=== PATIENT | female | born 1955 | race Caucasian/White ===

== ENCOUNTER 2021-03-28 09:28 | Day surgery (SDC) | payer OTHER ==
--- NOTE | 2021-03-28 08:55 | HP ---
DATE OF SURGERY: 03/28/2021 HISTORY OF PRESENT ILLNESS: The patient is a 65 year-old who had some sort of pelvic cyst, seen by Dr. Jacobo. Intervention radiology drained in the past, re-accumulated. It started after lifting the patient one person increased abdominal discomfort, some urinary urgency. The patient was to see Dr. Guardado or Dr. Butler in the office regarding the bladder. She is in need of colonoscopy as well. PAST MEDICAL HISTORY: Diabetes. Hypertension. Hyperlipidemia. Seasonal allergies. PAST SURGICAL HISTORY: Cholecystectomy. Appendectomy. Tonsillectomy. Complete hysterectomy in the past. MEDICATIONS: Glimepiride, lisinopril, atorvastatin, estradiol. ALLERGIES: NKDA. FAMILY HISTORY: Leukemia. SOCIAL HISTORY: No smoking or alcohol abuse. REVIEW OF SYSTEMS: Fourteen systems reviewed. No chest pain or palpitations. Other systems negative or noncontributory as above and per preadmission questionnaire. PHYSICAL EXAMINATION: GENERAL: No acute distress. HEENT: Sclerae nonicteric. NECK: No JVD. CHEST: Equal excursion, nonlabored breathing. CVS: Regular rate and rhythm. ABDOMEN: Soft. No peritoneal signs. EXTREMITIES: No significant edema. NEURO: Alert, oriented, moving extremities symmetrically. RECTAL: Deferred timed to endoscopy exam. PSYCH: Appropriate mood and affect. IMPRESSION: History of pelvic cyst, history of total hysterectomy in the past. She is in need of colonoscopy for further evaluation. Risks and benefits explained in detail including but not limited to bleeding or infection, risk of bowel injury or perforation possibly requiring open procedure, risk of missed or nondiagnosis or incomplete exam possibly requiring barium enema, other studies or procedures, general risk of anesthesia or sedation, risk of perforation possibly requiring open procedure but not limited to, consent obtained. Will proceed with outpatient colonoscopy for further evaluation to rule out other etiology of pelvic area mass.
[2021-03-28] MEDS ORDERED: Dextrose 5%-1/4NS IV Soln. 1000 ML 1,000 ML IV SCH (10:00)
[2021-03-28] MEDS ORDERED: Lactated Ringers 1,000 ML IV SCH (10:00)
[2021-03-28] MEDS ORDERED: DIPRIVAN 200 MG/20 ML IV ONE (11:47)
[2021-03-28 13:00] VITALS: O2SAT 98
[2021-03-28 13:09] VITALS: BP 140/77; PULSE 74
--- NOTE | 2021-03-29 09:42 | OP ---
SURGERY DATE/TIME: 03/28/2021 1136 PREOPERATIVE DIAGNOSES: 1) Last colonoscopy 20 years ago, need for follow up screening colonoscopy. 2) History of pelvic area cystic lesion. POSTOPERATIVE DIAGNOSES: 1) Small polyp transverse colon. 2) Small polyp versus hyperplastic lesion in the rectum. 3) Very tortuous colon. 4) Fair bowel prep. 5) ASA Class II. 6) Few diverticula. PROCEDURES: 1) Colonoscopy to cecum. 2) Hot biopsy polypectomy small transverse colon polyp. 3) Hot biopsy polypectomy small early polyp versus hyperplastic lesion rectum x2. 4) Random cold biopsies left colon and rectum for histology given history of pelvic cystic mass. SURGEON: Dr. Max Leyva. BOTANICAL TECHNICAL OFFICER: Dawood Cook, Medical Student III. ANESTHESIA: MAC. ESTIMATED BLOOD LOSS: Minimal. INDICATIONS: As noted above. Risks and benefits explained in detail but not limited to and consent obtained. DESCRIPTION OF PROCEDURE AND FINDINGS: The patient is taken to the endoscopy room. MAC anesthesia introduced. After official time out and no disagreement with planned procedure, digital rectal exam did not reveal any intraluminal rectal masses. Question whether the cystic mass palpated outside but there is no firm intraluminal masses in the rectum. Video colonoscope passed up through the very tortuous colon requiring position changes with two different staff members pushing on the abdomen. The scope was finally able to be passed to the cecum. Appendiceal orifice photo documented in the valve area. Prep overall was fair. ASA Class II. The scope is then carefully withdrawn over 8 to 8 minutes stopping in the transverse colon to remove a small, early 2 mm early polyp versus hyperplastic lesion. With hot biopsy forceps and brief bursts of cautery good hemostasis noted. The scope was then carefully pulled through the left colon. It showed a few small diverticula. There were no signs of any large polyps, masses or obstructing lesions. There are two small early polyps versus hyperplastic lesions in the rectum that were removed with hot biopsy forceps with brief bursts of cautery. Good hemostasis noted. Cold biopsy of the lower part of the left colon and rectum area were biopsied for histology to rule out other cause of her cystic mass. Otherwise no signs of any large polyps, masses or obstructing lesions in the colon or rectum. The scope is withdrawn. Findings discussed with the family out in the waiting area. I will see her back in the office next week.
== END 2021-03-28 13:15 | disposition home or self-care (01) ==
LOC: SDC 09:28
PROVIDERS: ATTEND Surgery
DX: Z12.11 Encounter for screening for malignant neoplasm of colon (principal); K57.30 Diverticulosis of large intestine without perforation or abscess without bleeding; D12.3 Benign neoplasm of transverse colon; D12.8 Benign neoplasm of rectum; E11.9 Type 2 diabetes mellitus without complications; Z79.899 Other long term (current) drug therapy
CPT/HCPCS: 82947; 88305; J2704

== ENCOUNTER 2021-05-09 07:06 | Inpatient (IN) | payer OTHER ==
[2021-05-09] MEDS ORDERED: Sensorcaine 0.25% 10 ML ONE (07:11)
[2021-05-09] MEDS ORDERED: Lactated Ringers 1,000 ML IV ONE ×2 (07:11→07:29)
[2021-05-09] MEDS ORDERED: CEFAZOLIN 2 GM-D5W BAG** 2 GM/50 ML ML IV ONE (07:29)
--- NOTE | 2021-05-09 10:04 | HP ---
DATE OF SURGERY: 05/09/2021 HISTORY OF PRESENT ILLNESS: The patient is a 65-year-old had hysterectomy in the past several years ago and had ovaries removed. She had a pelvic cyst apparently drained back on the . She is having increase in abdominal discomfort, urinary urgency, followed up with urology. Colonoscopy did not show any obvious intraluminal issue. PAST MEDICAL HISTORY: Diabetes. Hypertension. Hyperlipidemia. Seasonal allergies. PAST SURGICAL HISTORY: Cholecystectomy. Appendectomy. Tonsillectomy. She had complete hysterectomy with two different procedures years ago. Repair of pelvic cyst as seen on ultrasound back in December or January. MEDICATIONS: Glimepiride, lisinopril, losartan, atorvastatin ALLERGIES: NKDA. FAMILY HISTORY: Leukemia. SOCIAL HISTORY: No smoking or alcohol abuse. REVIEW OF SYSTEMS: Fourteen systems reviewed. No chest pain or palpitations. Other systems negative or noncontributory as above and per preadmission questionnaire. PHYSICAL EXAMINATION: GENERAL: No acute distress. HEENT: Sclerae nonicteric. NECK: No JVD. CHEST: Equal excursion, nonlabored breathing. CVS: Regular rate and rhythm. ABDOMEN: Soft. No peritoneal signs. EXTREMITIES: No significant edema. NEURO: Alert, oriented, moving extremities symmetrically. PSYCH: Appropriate mood and affect. IMPRESSION: Increased urgency, increased aches and discomfort, recurrent pelvic cystic mass drained in the past. She has had hysterectomy and ovary removed in the past. We discussed options at length. She prefers to go ahead and proceed with attempted surgical resection and drainage of the cystic mass. She understands with her multiple abdominal procedures will be high probability of an open procedure otherwise could visualize laparoscopically possibly. General risk of bleeding or infection, risk of trocar injury or hernia, risk of bladder or blood vessel injury, risk of bladder or ureter issues or injury, general risk of anesthesia, deep vein thrombosis, pulmonary embolism, pneumonia, possibility of no improvement in her aches or pains, possibility no improvement in bladder issues. General risk of anesthesia, deep vein thrombosis, pulmonary embolism, pneumonia. General risk of aches or pains. Risk of hernia formation or need to convert to open procedure. Will proceed with laparoscopic probable open resection of pelvic cystic mass possible drain placement.
[2021-05-09] MEDS ORDERED: CEFAZOLIN 2 GM-D5W BAG** 2 GM/50 ML ML IV SCH (11:30)
[2021-05-09] MEDS ORDERED: Lactated Ringers 1,000 ML IV SCH ×2 (11:30)
[2021-05-09 12:06] LABS: Hematocrit 43.7 % (35-47); Hemoglobin 14.1 gm/dl (12.0-16.0); Mean Cell Volume 89.9 fl (78-100); Mean Corpuscular Hgb Concent. 32.3 g/dl (32-36); Mean Platelet Volume 10.4 fl (7.5-11.0); Platelet Count 256 K/mm3 (150-450); Red Blood Count 4.86 M/mm3 (4.1-5.4); White Blood Count 13.5 K/mm3 (4.0-10.5)
[2021-05-09 12:19] LABS: ALBUMIN 4.4 g/dL (3.5-5.0); ALKALINE PHOSPHATASE 81 U/L (38-126); ANION GAP 13.2 MEQ/L (5-15); BLOOD UREA NITROGEN 16 mg/dL (7-17); CHLORIDE 103 mmol/L (98-107); Calcium 9.4 mg/dL (8.4-10.2); Carbon Dioxide 26 mmol/L (22-30); Creatinine 1 0.51 mg/dL (0.52-1.04); EST GLOMERULAR FILTRATION RATE > 60.0 ML/MIN; Glucose 181 mg/dL (74-106); Potassium 3.9 mmol/L (3.5-5.1); SGOT/AST 23 U/L (14-36); SGPT/ALT 15 U/L (0-35); SODIUM 138 mmol/L (137-145); Total Protein 7.3 g/dL (6.3-8.2)
[2021-05-09] MEDS ORDERED: Versed 2 MG/2 ML Injection ONE (12:28)
[2021-05-09] MEDS ORDERED: Zemuron 100 MG/10 ML ONE ×2 (12:28→15:26)
[2021-05-09] MEDS ORDERED: SUBLIMAZE 250 MCG/5 ML ONE (12:28)
[2021-05-09] MEDS ORDERED: DIPRIVAN 200 MG/20 ML IV ONE (12:28)
[2021-05-09 12:38] LABS: ABO TYPING O; Antibody Screen NEGATIVE (NEGATIVE); RH TYPING POSITIVE
[2021-05-09] MEDS ORDERED: Versed 2 MG/2 ML Injection IV PRN (13:11)
[2021-05-09] MEDS ORDERED: Sodium Chloride 0.9% 1000 ML 1,000 ML IV SCH (13:15)
[2021-05-09] MEDS ORDERED: SUBLIMAZE 100 MCG/2 ML ONE (14:50)
[2021-05-09] MEDS ORDERED: Sodium Chloride 0.9% 1000 ML 1,000 ML ONE (15:15)
[2021-05-09] MEDS ORDERED: APRESOLINE 20 MG/ML INJ ONE (15:30)
[2021-05-09] MEDS ORDERED: DILAUDID 2 MG INJECTION ONE (15:51)
[2021-05-09] MEDS ORDERED: Marcaine 0.5%/Epinephrine 10 ML ONE (16:32)
[2021-05-09] MEDS ORDERED: Zofran 4 MG/2 ML VIAL ONE ×2 (16:44→17:49)
[2021-05-09] MEDS ORDERED: BRIDION 200MG/2ML IV ONE (16:44)
[2021-05-09] MEDS ORDERED: NORCO 5/325 MG PO PRN (19:08)
[2021-05-09] MEDS: MORPHINE SULFATE 4 MG INJ IV PRN ×2 (20:13→22:40)
[2021-05-09] MEDS: Zofran 4 MG/2 ML VIAL IV PRN (22:46)
[2021-05-09 23:04] LABS: Appearance SLIGHTLY CLOUDY (CLEAR); Bacteria RARE /HPF (NEGATIVE); Bilirubin NEGATIVE (NEGATIVE); Blood SMALL Ery/ul (0-5); Epithelial Cells RARE /HPF (FEW); Glucose NEGATIVE (NEGATIVE); Ketones TRACE (NEGATIVE); Leukocyte Esterase NEGATIVE (NEGATIVE); Mucus SLIGHT /HPF (NEGATIVE); Nitrite NEGATIVE (NEGATIVE); Protein,Urine Dip NEGATIVE (Negative); RBC 0-2 /HPF (0-2); Urobilinogen NEGATIVE mg/dL (0-1); WBC 0-2 /HPF (0-5)
[2021-05-09] MEDS ORDERED: Zosyn 3.375 GM Vial IV ONE (23:16)
[2021-05-09] MEDS ORDERED: Sodium Chloride 100ML MINI-BAG PLUS 100 ML IV ONE (23:17)
[2021-05-09] MEDS: Zosyn 3.375 GM Vial 3.375 GM in Sodium Chloride 100ML MINI-BAG PLUS 100 ML IV SCH (23:26)
[2021-05-10] MEDS: MORPHINE SULFATE 4 MG INJ IV PRN ×4 (00:59→05:54)
[2021-05-10 04:57] LABS: Hematocrit 39.7 % (35-47); Hemoglobin 12.1 gm/dl (12.0-16.0); Mean Cell Volume 93.2 fl (78-100); Mean Corpuscular Hemoglobin 28.4 pg (26-32); Mean Corpuscular Hgb Concent. 30.5 g/dl (32-36); Mean Platelet Volume 10.3 fl (7.5-11.0); Platelet Count 245 K/mm3 (150-450); Red Blood Count 4.26 M/mm3 (4.1-5.4); Red Cell Distribution Width 14.1 % (11.5-14.0); White Blood Count 21.3 K/mm3 (4.0-10.5)
[2021-05-10 05:27] LABS: ANION GAP 13.3 MEQ/L (5-15); BLOOD UREA NITROGEN 11 mg/dL (7-17); CHLORIDE 103 mmol/L (98-107); Carbon Dioxide 23 mmol/L (22-30); Creatinine 1 0.45 mg/dL (0.52-1.04); EST GLOMERULAR FILTRATION RATE > 60.0 ML/MIN; Glucose 237 mg/dL (74-106); SODIUM 135 mmol/L (137-145)
[2021-05-10] MEDS: Zofran 4 MG/2 ML VIAL IV PRN ×3 (05:46→23:10)
[2021-05-10] MEDS ORDERED: Zosyn 3.375 GM Vial IV ONE (05:50)
[2021-05-10] MEDS ORDERED: Sodium Chloride 100ML MINI-BAG PLUS 100 ML IV ONE (05:50)
[2021-05-10] MEDS: Zosyn 3.375 GM Vial 3.375 GM in Sodium Chloride 100ML MINI-BAG PLUS 100 ML IV SCH ×4 (05:54→23:10)
[2021-05-10] MEDS ORDERED: MEDICATION INTERVENTION MC SCH (07:30)
[2021-05-10] MEDS ORDERED: DILAUDID 1 MG/1ML PCA IV PRN (08:31)
--- NOTE | 2021-05-10 09:01 | OP ---
SURGERY DATE/TIME: 05/09/2021 1352 PREOPERATIVE DIAGNOSIS: Recurrent pelvic cyst, prior history of hysterectomy and oophorectomy in the past. History of pelvic cyst recurrent after interventional radiologic (IR) drainage in the past. Increased bladder urgency symptomatic. POSTOPERATIVE DIAGNOSIS: Infected preperitoneal cyst between the peritoneum and bladder above the vaginal cuff. PROCEDURES: 1) Laparoscopy converted to open exploratory laparotomy. 2) Left salpingectomy, left oophorectomy (seemed to be remnant of left ovary path pending). 3) Biopsy of infected preperitoneal cystic mass with drainage of infection. 4) Drain placement. SURGEON: Dr. Max Leyva. APPARATUS LINEMAN: Dr. Clarence Blandon. ANESTHESIA: General. ESTIMATED BLOOD LOSS: Minimal. INDICATIONS: As noted above. Risks and benefits explained in detail and not limited to and consent obtained. DESCRIPTION OF PROCEDURE AND FINDINGS: The patient is taken to the operating room. General anesthesia induced. Abdomen prepped and draped in usual sterile fashion. After official time out and no disagreement with planned procedure, a transverse incision made supraumbilical area. Fascia grasped, pulled up and Veress needle inserted and tested with saline. Pneumoperitoneum accomplished with open pressure 0 to 15. A 5 mm bladeless port and camera inserted without difficulty. It was evident that the lower abdomen was full of omental adhesions. It was felt that it was not safe to try to continue laparoscopically. It was felt this warranted an open procedure. Four lower midline incisions made through a wound protector about 7 cm in size. Peritoneum entered sharply. Lysis of all these omental adhesions mobilizing the omentum up out of the pelvis allowing the small bowel to be mobilized up out of the pelvis. The sigmoid and rectum were grossly unremarkable. There was no posterior cystic structure. The patient did have tube fimbria on the left and what is seen to be some ovarian tissue. As there was a concern whether there was potential malignancy involved, it was elected to go ahead and remove this ovary in this older patient. Staying well in front of the retroperitoneum the ovary is carefully dissected out clamping, ligating with Vicryl ties with the salpingectomy also accomplished on this side and passed off staying well away from the retroperitoneum. It was evidenced by Dr. Clarence Blandon had come down and scrubbed down for this unusual case of this cystic structure and reviewed with Dr. Luke Mota, Radiologist. Reviewed the MRI this is seen to be separate from the bladder but intra-abdominally this is a preperitoneal structure seen to be well peritoneal isolation away from the abdominal cavity and the pelvis and the rectum. After we dissected out the tube and the left ovary and passed those off for pathology then elected to stick a needle in this cystic structure that seemed to be posterior and underneath the bladder area this was a needle and syringe carefully draining what looked like purulent material that was sent for culture and cytology as this is definitely an infected cyst or abscess cavity. It was felt best to unroof this and carefully unroofed posteriorly. Biopsy of the wall was taken and passed off for pathology. Good hemostasis with some 3-0 Vicryl run along to marsupialize the area of this infected cavity. Palpation inside the area the Zarate was not visible or palpable this appeared to be a blind pouch. Once the purulent fluid had carefully been drained out of this cavity it was felt best to leave the KESHIA drain. KESHIA drain left in the cavity out through an inferior stab wound to the right. The area where the salpingectomy was seen to be residual remnant of the left ovary had been removed and had good hemostasis. Another KESHIA drain left along this gutter out through left lateral quadrant. The patient tolerated the procedure well. Copious amount of irrigation irrigating clear. All sponge, needle and instrument counts correct x2. The fascia had been closed with running looped sequential 0 PDS. Subcu irrigated out. Subcu closed with 3-0 Vicryl. Skin closed with juan francisco and some Iodoform placed to be gradually advanced out over the next few days. Findings discussed with the family out in the waiting area.
[2021-05-10] MEDS ORDERED: PHENERGAN 25 MG PO PRN (09:27)
--- NOTE | 2021-05-10 09:57 | PCM.HP ---
History of Present Illness - Chief Complaint Chief Complaint: pelvic cystic mass History of Present Illness: is a 65 year old female. See H&P done by DR Red in Chart. Medications & Allergies Home Medications: Home Medication List Estradiol [Estrace] 0.5 mg PO DAILY 03/21/21 [History Confirmed 05/09/21] Glimepiride 2 mg [Amaryl 2 MG] 2 mg PO QAM 03/21/21 [History Confirmed 05/09/21] Glimepiride 4 mg [Amaryl 4 mg] 4 mg PO HS 03/21/21 [History Confirmed 05/09/21] Cetirizine HCl [Allergy Relief] 10 mg PO DAILY 05/06/21 [History Confirmed 05/09/21] Doxylamine Succinate [Sleep Aid] 25 mg PO HS 05/06/21 [History Confirmed 05/09/21] Losartan Potassium 50 mg [Cozaar 50 MG] 50 mg PO DAILY 05/06/21 [History Confirmed 05/09/21] Hydrocodone/Acetaminophen [Hydrocodone-Acetamin 5-325 mg] 1 tab PO Q4HPRN PRN #28 tablet MDD 6 05/09/21 [Rx] Allergies/Adverse Reactions: Allergies Allergy/AdvReac Type Severity Reaction Status Date / Time sodium chloride Allergy Swelling Verified 05/09/21 12:23 codeine AdvReac Hives Verified 05/09/21 12:23 metformin AdvReac Diarrhea Verified 05/09/21 12:23 Sulfa (Sulfonamide AdvReac Hives Verified 05/09/21 12:23 Antibiotics) - Past Medical History Past Medical History: Yes Neurological History: Peripheral Neuropathy ENT History: No Pertinent History Cardiac History: Hypertension Respiratory History: Asthma Endocrine Medical History: Diabetes Type II Musculoskelatal History: No Pertinent History GI Medical History: No Pertinent History History: Other Pyscho-Social History: No Pertinent History Reproductive Disorders: No Pertinent History Comment: protein in urine - Female History Hx Last Menstrual Period: UNKNOWN Are you now?: No - Past Surgical History Past Surgical History: Yes Neuro Surgical History: No Pertinent History Cardiac History: No Pertinent History Respiratory Surgery: No Pertinent History GI Surgical History: Appendectomy, Cholecystectomy, Exploratory Laparoscopy Genitourinary Surgical Hx: No Pertinent History Musculskeletal Surgical Hx: No Pertinent History Female Surgical History: Hysterectomy, Dilation & Curettage Other Surgical History: colonoscopy, exploratory with cholecystectomy and appendectomy done, pelvic cyst drained, L OVARY REMOVED, LUMP REMOVED FROM L UPPER ARM - Social History Smoking Status: Never smoker Exposure to second hand smoke: No Alcohol: None Drug Use: none - Physical Exam Vital Signs: Vital Signs - 24 hr Temp Pulse Resp BP Pulse Ox 05/10/21 08:53 98 05/10/21 07:38 97.2 F 87 17 130/61 97 05/10/21 04:46 98.6 F 96 H 16 131/65 97 05/10/21 00:02 98.4 F 103 H 16 139/67 97 05/09/21 21:45 101 H 16 133/62 91 L 05/09/21 21:20 102 H 18 133/63 90 L 05/09/21 19:45 101 H 18 145/67 96 05/09/21 19:15 100 H 18 145/67 94 L 05/09/21 18:45 96 H 18 131/73 98 05/09/21 18:30 98.0 F 96 H 20 150/68 93 L 05/09/21 12:14 97.2 F 77 18 142/70 96 05/09/21 12:00 97.2 F 77 18 142/70 96 Results - Labs Lab/Micro Results: Lab Results-Last 24 Hours 05/09/21 05/09/21 05/09/21 Range/Units 11:41 11:55 11:55 WBC 13.5 H (4.0-10.5) K/mm3 RBC 4.86 (4.1-5.4) M/mm3 Hgb 14.1 (12.0-16.0) gm/dl Hct 43.7 (35-47) % MCV 89.9 (78-100) fl MCH 29.0 (26-32) pg MCHC 32.3 (32-36) g/dl RDW 14.0 (11.5-14.0) % Plt Count 256 (150-450) K/mm3 MPV 10.4 (7.5-11.0) fl Sodium 138 (137-145) mmol/L Potassium 3.9 (3.5-5.1) mmol/L Chloride 103 (98-107) mmol/L Carbon Dioxide 26 (22-30) mmol/L Anion Gap 13.2 (5-15) MEQ/L BUN 16 (7-17) mg/dL Creatinine 0.51 L (0.52-1.04) mg/dL Estimated GFR > 60.0 ML/MIN Glucose 181 H (74-106) mg/dL Calcium 9.4 (8.4-10.2) mg/dL Total Bilirubin 0.50 (0.2-1.3) mg/dL AST 23 (14-36) U/L ALT 15 (0-35) U/L Alkaline Phosphatase 81 (38-126) U/L Serum Total Protein 7.3 (6.3-8.2) g/dL Albumin 4.4 (3.5-5.0) g/dL Urine Color (YELLOW) Urine Appearance (CLEAR) Urine pH (5-6) Ur Specific [place] (1.005-1.025) Urine Protein (Negative) Urine Ketones (NEGATIVE) Urine Blood (0-5) Pavel/ul Urine Nitrite (NEGATIVE) Urine Bilirubin (NEGATIVE) Urine Urobilinogen (0-1) mg/dL Ur Leukocyte Esterase (NEGATIVE) Urine WBC (Auto) (0-5) /HPF Urine RBC (Auto) (0-2) /HPF U Epithel Cells (Auto) (FEW) /HPF Urine Bacteria (Auto) (NEGATIVE) /HPF Urine Mucus (Auto) (NEGATIVE) /HPF Urine Glucose (NEGATIVE) mg/dL ABO Group O Rh Factor POSITIVE Antibody Screen NEGATIVE (NEGATIVE) 05/09/21 05/10/21 05/10/21 Range/Units 14:10 04:40 04:40 WBC 21.3 H (4.0-10.5) K/mm3 RBC 4.26 (4.1-5.4) M/mm3 Hgb 12.1 (12.0-16.0) gm/dl Hct 39.7 (35-47) % MCV 93.2 (78-100) fl MCH 28.4 (26-32) pg MCHC 30.5 L (32-36) g/dl RDW 14.1 H (11.5-14.0) % Plt Count 245 (150-450) K/mm3 MPV 10.3 (7.5-11.0) fl Sodium 135 L (137-145) mmol/L Potassium 4.0 (3.5-5.1) mmol/L Chloride 103 (98-107) mmol/L Carbon Dioxide 23 (22-30) mmol/L Anion Gap 13.3 (5-15) MEQ/L BUN 11 (7-17) mg/dL Creatinine 0.45 L (0.52-1.04) mg/dL Estimated GFR > 60.0 ML/MIN Glucose 237 H (74-106) mg/dL Calcium 8.0 L (8.4-10.2) mg/dL Total Bilirubin (0.2-1.3) mg/dL AST (14-36) U/L ALT (0-35) U/L Alkaline Phosphatase (38-126) U/L Serum Total Protein (6.3-8.2) g/dL Albumin (3.5-5.0) g/dL Urine Color YELLOW (YELLOW) Urine Appearance SLIGHTLY CLOUDY (CLEAR) Urine pH 5.0 (5-6) Ur Specific [place] 1.020 (1.005-1.025) Urine Protein NEGATIVE (Negative) Urine Ketones TRACE (NEGATIVE) Urine Blood SMALL (0-5) Pavel/ul Urine Nitrite NEGATIVE (NEGATIVE) Urine Bilirubin NEGATIVE (NEGATIVE) Urine Urobilinogen NEGATIVE (0-1) mg/dL Ur Leukocyte Esterase NEGATIVE (NEGATIVE) Urine WBC (Auto) 0-2 (0-5) /HPF Urine RBC (Auto) 0-2 (0-2) /HPF U Epithel Cells (Auto) RARE (FEW) /HPF Urine Bacteria (Auto) RARE (NEGATIVE) /HPF Urine Mucus (Auto) SLIGHT (NEGATIVE) /HPF Urine Glucose NEGATIVE (NEGATIVE) mg/dL ABO Group Rh Factor Antibody Screen (NEGATIVE) Assessment/Plan (1) Pelvic mass in female Current Visit: Yes Status: Acute Assessment & Plan: post op laprotomy 05/10/21 Code(s): R19.00 - INTRA-ABD AND PELVIC SWELLING, MASS AND LUMP, UNSP SITE
[2021-05-10] MEDS ORDERED: NON-FORMULARY ITEM (Estradiol [Estrace] 0.5 MG Tablet) PO SCH (10:00)
[2021-05-10] MEDS ORDERED: [UNRECOGNIZED DRUG - REMARK] PO SCH (10:00)
[2021-05-10] MEDS: CLARITIN 10 MG PO SCH (10:04)
[2021-05-10] MEDS: Cozaar 50 MG PO SCH (10:04)
[2021-05-10] MEDS: Amaryl 2 MG PO SCH (10:05)
[2021-05-10] MEDS: ENOXAPARIN SODIUM SQ SCH (10:06)
[2021-05-10] MEDS: ESTRACE 1 MG PO SCH (10:09)
--- NOTE | 2021-05-10 17:02 | PCM.NOTE ---
Date and Time: 05/10/21 1701 Subjective Assessment: Patient has had N/V post op but feels hungry now and has passed gas from below.Pain control achieved with pain pump. - Review of Systems Constitutional: Lethargy (as expected post op) Eyes: No Symptoms Ears, Nose, & Throat: No Symptoms Respiratory: No Symptoms Cardiac: No Symptoms Abdominal/Gastrointestinal: Abdominal Pain (as expected post op), Nausea Genitourinary Symptoms: No Symptoms Musculoskeletal: No Symptoms Skin: No Symptoms Neurological: No Symptoms Psychological: No Symptoms Endocrine: No Symptoms OBJECTIVE DATA Vital Signs: Vital Signs - 24 hr Temp Pulse Resp BP Pulse Ox 05/10/21 13:00 97.3 F 83 17 138/63 98 05/10/21 08:53 98 05/10/21 07:38 97.2 F 87 17 130/61 97 05/10/21 04:46 98.6 F 96 H 16 131/65 97 05/10/21 00:02 98.4 F 103 H 16 139/67 97 05/09/21 21:45 101 H 16 133/62 91 L 05/09/21 21:20 102 H 18 133/63 90 L 05/09/21 19:45 101 H 18 145/67 96 05/09/21 19:15 100 H 18 145/67 94 L 05/09/21 18:45 96 H 18 131/73 98 05/09/21 18:30 98.0 F 96 H 20 150/68 93 L Pain Assessment - Last Documented Pain Intensity 6 Pain Scale Used FLACC Intake and Output: Intake & Output 05/08/21 05/09/21 05/10/21 05/11/21 11:59 11:59 11:59 11:59 Intake Total 1184 1538 Output Total 900 55 Balance 284 1483 Weight 74.5 kg Lab Results: Lab Results-Last 24 Hours 05/09/21 05/10/21 05/10/21 Range/Units 14:10 04:40 04:40 WBC 21.3 H (4.0-10.5) K/mm3 RBC 4.26 (4.1-5.4) M/mm3 Hgb 12.1 (12.0-16.0) gm/dl Hct 39.7 (35-47) % MCV 93.2 (78-100) fl MCH 28.4 (26-32) pg MCHC 30.5 L (32-36) g/dl RDW 14.1 H (11.5-14.0) % Plt Count 245 (150-450) K/mm3 MPV 10.3 (7.5-11.0) fl Sodium 135 L (137-145) mmol/L Potassium 4.0 (3.5-5.1) mmol/L Chloride 103 (98-107) mmol/L Carbon Dioxide 23 (22-30) mmol/L Anion Gap 13.3 (5-15) MEQ/L BUN 11 (7-17) mg/dL Creatinine 0.45 L (0.52-1.04) mg/dL Estimated GFR > 60.0 ML/MIN Glucose 237 H (74-106) mg/dL Calcium 8.0 L (8.4-10.2) mg/dL Urine Color YELLOW (YELLOW) Urine Appearance SLIGHTLY CLOUDY (CLEAR) Urine pH 5.0 (5-6) Ur Specific [place] 1.020 (1.005-1.025) Urine Protein NEGATIVE (Negative) Urine Ketones TRACE (NEGATIVE) Urine Blood SMALL (0-5) Pavel/ul Urine Nitrite NEGATIVE (NEGATIVE) Urine Bilirubin NEGATIVE (NEGATIVE) Urine Urobilinogen NEGATIVE (0-1) mg/dL Ur Leukocyte Esterase NEGATIVE (NEGATIVE) Urine WBC (Auto) 0-2 (0-5) /HPF Urine RBC (Auto) 0-2 (0-2) /HPF U Epithel Cells (Auto) RARE (FEW) /HPF Urine Bacteria (Auto) RARE (NEGATIVE) /HPF Urine Mucus (Auto) SLIGHT (NEGATIVE) /HPF Urine Glucose NEGATIVE (NEGATIVE) mg/dL Assessment/Plan (1) Pelvic mass in female Current Visit: Yes Status: Resolved Assessment & Plan: surgically removed- attempted laproscopic but Laprotomy was needed due to complexity-see surgery report. Pathology pending. Code(s): R19.00 - INTRA-ABD AND PELVIC SWELLING, MASS AND LUMP, UNSP SITE (2) Nausea & vomiting Current Visit: Yes Status: Acute Qualifiers: Vomiting type: unspecified Assessment & Plan: post op N/V has Zophran IV or Phenergan oral-is on full liq diet ,encouraged clear liquids for today Code(s): R11.2 - NAUSEA WITH VOMITING, UNSPECIFIED (3) HTN (hypertension) Current Visit: Yes Status: Chronic Assessment & Plan: monitor Code(s): I10 - ESSENTIAL (PRIMARY) HYPERTENSION (4) DM2 (diabetes mellitus, type 2) Current Visit: Yes Status: Chronic Qualifiers: Diabetes mellitus watermaster insulin use: without long-term use Diabetes mellitus complication status: without complication Qualified Code(s): E11.9 - Type 2 diabetes mellitus without complications Assessment & Plan: is on orals held until regular diet,started low dose sliding scale
[2021-05-10] MEDS ORDERED: Reglan 10 MG PO PRN (20:46)
[2021-05-10] MEDS: AMARYL 4 MG PO SCH (21:02)
[2021-05-10] MEDS ORDERED: DOXYLAMINE SUCCINATE 25 MG PO SCH (22:00)
[2021-05-11 05:04] LABS: Absolute Neutrophil Ct (ANC) 15.03 (1.4-6.9); BASOPHIL % 0.1 % (0.0-0.4); Basophil (Absolute #) 0.03 (0-0.4); Eosinophil % 0.4 % (0.00-5.0); Eosinophil (Absolute #) 0.09 (0-0.5); Hematocrit 35.9 % (35-47); Hemoglobin 11.2 gm/dl (12.0-16.0); Lymphocyte (Absolute #) 2.66 (1.0-4.6); Mean Cell Volume 91.1 fl (78-100); Mean Corpuscular Hemoglobin 28.4 pg (26-32); Mean Corpuscular Hgb Concent. 31.2 g/dl (32-36); Mean Platelet Volume 10.4 fl (7.5-11.0); Monocyte (Absolute #) 2.64 (0.0-1.3); Monocytes % 12.9 % (0.0-12.0); Neutrophil % 73.6 % (36.0-66.0); Platelet Count 254 K/mm3 (150-450); Red Blood Count 3.94 M/mm3 (4.1-5.4); Red Cell Distribution Width 14.1 % (11.5-14.0); White Blood Count 20.5 K/mm3 (4.0-10.5)
[2021-05-11 05:13] LABS: ALBUMIN 3.3 g/dL (3.5-5.0); ALKALINE PHOSPHATASE 57 U/L (38-126); ANION GAP 10.2 MEQ/L (5-15); BLOOD UREA NITROGEN 8 mg/dL (7-17); CHLORIDE 104 mmol/L (98-107); Calcium 8.1 mg/dL (8.4-10.2); Carbon Dioxide 26 mmol/L (22-30); Creatinine 1 0.55 mg/dL (0.52-1.04); EST GLOMERULAR FILTRATION RATE > 60.0 ML/MIN; Glucose 214 mg/dL (74-106); Potassium 3.4 mmol/L (3.5-5.1); SGOT/AST 22 U/L (14-36); SGPT/ALT 18 U/L (0-35); SODIUM 137 mmol/L (137-145)
[2021-05-11] MEDS: Zosyn 3.375 GM Vial 3.375 GM in Sodium Chloride 100ML MINI-BAG PLUS 100 ML IV SCH ×3 (05:40→17:40)
[2021-05-11] MEDS ORDERED: Reglan 10 MG PO PRN (06:52)
[2021-05-11 08:43] LABS: Slide Review 1 YES
[2021-05-11] MEDS: ENOXAPARIN SODIUM SQ SCH (09:37)
[2021-05-11] MEDS: Cozaar 50 MG PO SCH (09:38)
[2021-05-11] MEDS: ESTRACE 1 MG PO SCH (09:38)
[2021-05-11] MEDS: CLARITIN 10 MG PO SCH (09:38)
[2021-05-11] MEDS: Amaryl 2 MG PO SCH (09:38)
[2021-05-11] MEDS: AMARYL 4 MG PO SCH (21:17)
[2021-05-12] MEDS: Zosyn 3.375 GM Vial 3.375 GM in Sodium Chloride 100ML MINI-BAG PLUS 100 ML IV SCH ×5 (00:22→23:11)
[2021-05-12 05:08] LABS: Absolute Neutrophil Ct (ANC) 12.85 (1.4-6.9); BASOPHIL % 0.4 % (0.0-0.4); Basophil (Absolute #) 0.07 (0-0.4); Eosinophil % 1.1 % (0.00-5.0); Hematocrit 36.2 % (35-47); Hemoglobin 11.5 gm/dl (12.0-16.0); Lymphocyte (Absolute #) 3.14 (1.0-4.6); Lymphocytes % 16.7 % (24.0-44.0); Mean Cell Volume 90.3 fl (78-100); Mean Corpuscular Hemoglobin 28.7 pg (26-32); Mean Corpuscular Hgb Concent. 31.8 g/dl (32-36); Mean Platelet Volume 9.9 fl (7.5-11.0); Monocyte (Absolute #) 2.49 (0.0-1.3); Monocytes % 13.3 % (0.0-12.0); Neutrophil % 68.5 % (36.0-66.0); Platelet Count 250 K/mm3 (150-450); Red Blood Count 4.01 M/mm3 (4.1-5.4); Red Cell Distribution Width 14.1 % (11.5-14.0); White Blood Count 18.8 K/mm3 (4.0-10.5)
[2021-05-12 05:30] LABS: ALBUMIN 3.3 g/dL (3.5-5.0); ALKALINE PHOSPHATASE 74 U/L (38-126); ANION GAP 9.2 MEQ/L (5-15); BLOOD UREA NITROGEN 7 mg/dL (7-17); CHLORIDE 104 mmol/L (98-107); Calcium 8.3 mg/dL (8.4-10.2); Carbon Dioxide 26 mmol/L (22-30); EST GLOMERULAR FILTRATION RATE > 60.0 ML/MIN; Glucose 220 mg/dL (74-106); Potassium 3.5 mmol/L (3.5-5.1); SGOT/AST 30 U/L (14-36); SGPT/ALT 22 U/L (0-35); SODIUM 136 mmol/L (137-145); Total Protein 5.7 g/dL (6.3-8.2)
[2021-05-12] MEDS: ESTRACE 1 MG PO SCH (09:00)
[2021-05-12] MEDS: Amaryl 2 MG PO SCH (09:01)
[2021-05-12] MEDS: Cozaar 50 MG PO SCH (09:01)
[2021-05-12] MEDS: ENOXAPARIN SODIUM SQ SCH (09:01)
[2021-05-12] MEDS: CLARITIN 10 MG PO SCH (09:01)
[2021-05-12] MEDS ORDERED: PHARMACY DOSING REQUIRED: VANCOMYCIN IV STA (09:31)
[2021-05-12] MEDS: VANCOMYCIN 1 GRAM/200 ML BAG 1 GM/200 ML PIGGYBACK IV SCH ×2 (10:06→21:33)
[2021-05-12] MEDS: Miralax Powder 17GM PACKET PO SCH (10:06)
[2021-05-12 10:41] LABS: Slide Review 1 YES
[2021-05-12] MEDS: Zofran 4 MG/2 ML VIAL IV PRN (12:31)
[2021-05-12] MEDS: NORCO 5/325 MG PO PRN ×2 (12:31→20:04)
[2021-05-12] MEDS: Sodium Chloride 0.9% 10 ML FLUSH Syringe IV SCH ×2 (14:47→21:34)
[2021-05-12] MEDS: AMARYL 4 MG PO SCH (21:34)
[2021-05-13] MEDS: NORCO 5/325 MG PO PRN ×3 (00:18→21:13)
[2021-05-13 05:28] LABS: Absolute Neutrophil Ct (ANC) 7.97 (1.4-6.9); BASOPHIL % 0.4 % (0.0-0.4); Basophil (Absolute #) 0.05 (0-0.4); Eosinophil % 2.4 % (0.00-5.0); Eosinophil (Absolute #) 0.33 (0-0.5); Hematocrit 33.7 % (35-47); Hemoglobin 10.7 gm/dl (12.0-16.0); Lymphocyte (Absolute #) 3.45 (1.0-4.6); Lymphocytes % 25.4 % (24.0-44.0); Mean Cell Volume 91.1 fl (78-100); Mean Corpuscular Hemoglobin 28.9 pg (26-32); Mean Corpuscular Hgb Concent. 31.8 g/dl (32-36); Mean Platelet Volume 10.1 fl (7.5-11.0); Monocytes % 13.2 % (0.0-12.0); Neutrophil % 58.6 % (36.0-66.0); Platelet Count 250 K/mm3 (150-450); Red Cell Distribution Width 14.1 % (11.5-14.0); White Blood Count 13.6 K/mm3 (4.0-10.5)
[2021-05-13] MEDS: Zosyn 3.375 GM Vial 3.375 GM in Sodium Chloride 100ML MINI-BAG PLUS 100 ML IV SCH ×3 (06:23→17:53)
[2021-05-13 06:27] LABS: ALBUMIN 3.1 g/dL (3.5-5.0); ALKALINE PHOSPHATASE 87 U/L (38-126); ANION GAP 7.6 MEQ/L (5-15); BLOOD UREA NITROGEN 11 mg/dL (7-17); CHLORIDE 105 mmol/L (98-107); Calcium 8.7 mg/dL (8.4-10.2); Carbon Dioxide 27 mmol/L (22-30); Creatinine 1 0.45 mg/dL (0.52-1.04); EST GLOMERULAR FILTRATION RATE > 60.0 ML/MIN; Glucose 193 mg/dL (74-106); Potassium 3.7 mmol/L (3.5-5.1); SGOT/AST 48 U/L (14-36); SGPT/ALT 25 U/L (0-35); SODIUM 137 mmol/L (137-145); Total Protein 5.3 g/dL (6.3-8.2)
[2021-05-13] MEDS: Sodium Chloride 0.9% 10 ML FLUSH Syringe IV SCH ×3 (06:29→22:27)
[2021-05-13] MEDS ORDERED: DULCOLAX 5 MG PO PRN (07:04)
[2021-05-13] MEDS: CLARITIN 10 MG PO SCH (08:47)
[2021-05-13] MEDS: ENOXAPARIN SODIUM SQ SCH (08:47)
[2021-05-13] MEDS: Amaryl 2 MG PO SCH (08:47)
[2021-05-13] MEDS: Cozaar 50 MG PO SCH (08:47)
[2021-05-13] MEDS: ESTRACE 1 MG PO SCH ×2 (08:52→08:54)
[2021-05-13] MEDS: Hydromorphone 1 mg/ml Injection IV PRN ×2 (09:14→17:20)
[2021-05-13] MEDS: VANCOMYCIN 1 GRAM/200 ML BAG 1 GM/200 ML PIGGYBACK IV SCH ×2 (09:14→22:26)
[2021-05-13] MEDS: Miralax Powder 17GM PACKET PO SCH (09:34)
[2021-05-13 16:03] VITALS: BP 174/76; PULSE 70; O2SAT 95
[2021-05-13] MEDS ORDERED: TROUGH DRUG LEVELS IJ ONE (21:30)
[2021-05-13] MEDS: AMARYL 4 MG PO SCH (21:56)
[2021-05-14] MEDS: Zosyn 3.375 GM Vial 3.375 GM in Sodium Chloride 100ML MINI-BAG PLUS 100 ML IV SCH ×4 (00:03→18:59)
[2021-05-14] MEDS: NORCO 5/325 MG PO PRN ×4 (05:02→23:44)
[2021-05-14] MEDS: Sodium Chloride 0.9% 10 ML FLUSH Syringe IV SCH ×3 (05:52→21:44)
[2021-05-14 06:41] LABS: Hematocrit 32.7 % (35-47); Hemoglobin 10.4 gm/dl (12.0-16.0); Mean Cell Volume 91.3 fl (78-100); Mean Corpuscular Hemoglobin 29.1 pg (26-32); Mean Corpuscular Hgb Concent. 31.8 g/dl (32-36); Mean Platelet Volume 10.2 fl (7.5-11.0); Platelet Count 288 K/mm3 (150-450); Red Blood Count 3.58 M/mm3 (4.1-5.4); Red Cell Distribution Width 14.1 % (11.5-14.0)
[2021-05-14 06:56] LABS: ALBUMIN 3.1 g/dL (3.5-5.0); ALKALINE PHOSPHATASE 90 U/L (38-126); ANION GAP 8.3 MEQ/L (5-15); BLOOD UREA NITROGEN 12 mg/dL (7-17); CHLORIDE 103 mmol/L (98-107); Calcium 8.8 mg/dL (8.4-10.2); Carbon Dioxide 28 mmol/L (22-30); Creatinine 1 0.46 mg/dL (0.52-1.04); EST GLOMERULAR FILTRATION RATE > 60.0 ML/MIN; Glucose 204 mg/dL (74-106); Potassium 3.7 mmol/L (3.5-5.1); SGOT/AST 25 U/L (14-36); SGPT/ALT 23 U/L (0-35); SODIUM 135 mmol/L (137-145); Total Protein 5.5 g/dL (6.3-8.2)
[2021-05-14 07:25] LABS: Eosinophil 1 % (0.00-3.0); Lymphocytes 35 % (24-44); Monocyte 3 % (0.0-12.0); Neutrophils 61 % (36.0-66.0); Total Cells Counted 100
[2021-05-14 07:27] LABS: Platelet Estimate NORMAL (NORMAL)
[2021-05-14] MEDS: Amaryl 2 MG PO SCH (11:00)
[2021-05-14] MEDS: CLARITIN 10 MG PO SCH (11:00)
[2021-05-14] MEDS: Cozaar 50 MG PO SCH (11:00)
[2021-05-14] MEDS: ESTRACE 1 MG PO SCH (11:00)
[2021-05-14] MEDS: ENOXAPARIN SODIUM SQ SCH (11:01)
[2021-05-14] MEDS: Miralax Powder 17GM PACKET PO SCH (11:06)
[2021-05-14] MEDS: VANCOMYCIN 1.25 GM/250 ML BAG 1.25 GM/250 ML PIGGYBACK IV SCH (12:56)
[2021-05-14] MEDS: FLAGYL 500 MG IVPB 500 MG/100 ML BAG IV SCH ×2 (14:50→21:39)
[2021-05-14] MEDS: AMARYL 4 MG PO SCH (21:43)
[2021-05-15] MEDS: VANCOMYCIN 1.25 GM/250 ML BAG 1.25 GM/250 ML PIGGYBACK IV SCH ×3 (01:07→22:18)
[2021-05-15] MEDS: Zosyn 3.375 GM Vial 3.375 GM in Sodium Chloride 100ML MINI-BAG PLUS 100 ML IV SCH ×5 (01:45→23:51)
[2021-05-15] MEDS: FLAGYL 500 MG IVPB 500 MG/100 ML BAG IV SCH ×3 (06:01→21:40)
[2021-05-15] MEDS: Sodium Chloride 0.9% 10 ML FLUSH Syringe IV SCH ×3 (06:18→21:40)
[2021-05-15 06:34] LABS: Hematocrit 33.5 % (35-47); Hemoglobin 10.3 gm/dl (12.0-16.0); Mean Cell Volume 91.3 fl (78-100); Mean Corpuscular Hemoglobin 28.1 pg (26-32); Mean Corpuscular Hgb Concent. 30.7 g/dl (32-36); Platelet Count 297 K/mm3 (150-450); Red Blood Count 3.67 M/mm3 (4.1-5.4); Red Cell Distribution Width 14.1 % (11.5-14.0); White Blood Count 13.5 K/mm3 (4.0-10.5)
[2021-05-15 06:50] LABS: ALBUMIN 3.1 g/dL (3.5-5.0); ALKALINE PHOSPHATASE 90 U/L (38-126); BLOOD UREA NITROGEN 13 mg/dL (7-17); CHLORIDE 104 mmol/L (98-107); Calcium 8.8 mg/dL (8.4-10.2); Carbon Dioxide 26 mmol/L (22-30); Creatinine 1 0.44 mg/dL (0.52-1.04); EST GLOMERULAR FILTRATION RATE > 60.0 ML/MIN; Glucose 172 mg/dL (74-106); Potassium 3.9 mmol/L (3.5-5.1); SGOT/AST 34 U/L (14-36); SGPT/ALT 26 U/L (0-35); SODIUM 138 mmol/L (137-145); Total Protein 5.5 g/dL (6.3-8.2)
[2021-05-15 08:26] LABS: BAND 2 % (0.0-2.0); Basophil 1 % (0.0-1.0); Lymphocytes 26 % (24-44); Monocyte 5 % (0.0-12.0); Neutrophils 66 % (36.0-66.0); Total Cells Counted 100
[2021-05-15 08:27] LABS: Platelet Estimate NORMAL (NORMAL)
[2021-05-15] MEDS: Amaryl 2 MG PO SCH ×2 (08:37→08:50)
[2021-05-15] MEDS: CLARITIN 10 MG PO SCH (08:37)
[2021-05-15] MEDS: Cozaar 50 MG PO SCH (08:38)
[2021-05-15] MEDS: ENOXAPARIN SODIUM SQ SCH (08:38)
[2021-05-15] MEDS: Miralax Powder 17GM PACKET PO SCH (08:38)
[2021-05-15] MEDS: NORCO 5/325 MG PO PRN ×2 (08:50→17:45)
[2021-05-15] MEDS: ESTRACE 1 MG PO SCH (08:52)
[2021-05-15] MEDS: Zofran 4 MG/2 ML VIAL IV PRN (17:52)
[2021-05-15] MEDS: AMARYL 4 MG PO SCH (21:40)
[2021-05-16] MEDS: FLAGYL 500 MG IVPB 500 MG/100 ML BAG IV SCH ×3 (05:31→21:16)
[2021-05-16] MEDS: Zosyn 3.375 GM Vial 3.375 GM in Sodium Chloride 100ML MINI-BAG PLUS 100 ML IV SCH ×4 (06:05→23:40)
[2021-05-16 06:10] LABS: Hematocrit 33.9 % (35-47); Hemoglobin 10.5 gm/dl (12.0-16.0); Mean Cell Volume 91.4 fl (78-100); Mean Corpuscular Hemoglobin 28.3 pg (26-32); Platelet Count 297 K/mm3 (150-450); Red Blood Count 3.71 M/mm3 (4.1-5.4); Red Cell Distribution Width 14.4 % (11.5-14.0); White Blood Count 17.2 K/mm3 (4.0-10.5)
[2021-05-16 06:41] LABS: BAND 1 % (0.0-2.0); Lymphocytes 15 % (24-44); Monocyte 7 % (0.0-12.0); Neutrophils 77 % (36.0-66.0); Platelet Estimate NORMAL (NORMAL); Total Cells Counted 100
[2021-05-16 06:47] LABS: ALBUMIN 3.2 g/dL (3.5-5.0); ALKALINE PHOSPHATASE 89 U/L (38-126); ANION GAP 10.3 MEQ/L (5-15); BLOOD UREA NITROGEN 10 mg/dL (7-17); CHLORIDE 105 mmol/L (98-107); Calcium 8.9 mg/dL (8.4-10.2); Carbon Dioxide 27 mmol/L (22-30); Creatinine 1 0.49 mg/dL (0.52-1.04); EST GLOMERULAR FILTRATION RATE > 60.0 ML/MIN; Glucose 158 mg/dL (74-106); PROCALCITONIN 0.166 ng/mL (0.030-0.080); Potassium 3.9 mmol/L (3.5-5.1); SGOT/AST 24 U/L (14-36); SGPT/ALT 25 U/L (0-35); SODIUM 139 mmol/L (137-145); Total Protein 5.5 g/dL (6.3-8.2)
[2021-05-16] MEDS: Sodium Chloride 0.9% 10 ML FLUSH Syringe IV SCH ×3 (07:01→22:09)
--- NOTE | 2021-05-16 08:46 | PCM.NOTE ---
Date and Time: 05/16/21 08 Subjective Assessment: Pt still having lower abd pain. Monica po - last night had no appetite but did eat toast this morning. WBC up this morning. Having soft stools 2-3x/d. - Review of Systems Constitutional: No Fever Abdominal/Gastrointestinal: Abdominal Pain, No Vomiting Objective Exam General Appearance: no apparent distress, alert, other (has pain with movement in the bed) Neurologic Exam: oriented x 3, cooperative Skin Exam: normal color, warm, dry, No rash Eye Exam: eyes nml inspection Ears, Nose, Throat Exam: moist mucous membranes Neck Exam: normal inspection Respiratory Exam: normal breath sounds, lungs clear, No crackles/rales, No rhonchi, No wheezing Cardiovascular Exam: regular rate/rhythm, normal heart sounds, No murmur Gastrointestinal/Abdomen Exam: soft, normal bowel sounds, tenderness (generalized), other (midline dressing c/d/i), No distention, No mass, No guarding, No rebound Extremity Exam: normal inspection, No pedal edema, No swelling Back Exam: normal inspection, No rash OBJECTIVE DATA Vital Signs: Vital Signs - 24 hr Temp Pulse Resp BP Pulse Ox 05/16/21 08:00 98.6 F 68 19 177/81 94 L 05/16/21 03:20 97.7 F 71 18 170/76 94 L 05/15/21 23:25 97.8 F 67 16 154/71 94 L 05/15/21 19:41 97.7 F 69 17 167/77 96 05/15/21 16:00 98.6 F 75 19 192/88 94 L 05/15/21 12:00 97.8 F 76 19 194/89 96 Pain Assessment - Last Documented Pain Intensity 5 Pain Scale Used 0-10 Pain Scale Intake and Output: Intake & Output 05/13/21 05/14/21 05/15/21 05/16/21 12:59 12:59 11:59 11:59 Intake Total 3416 Output Total Balance 3416 Weight Lab Results: Lab Results-Last 24 Hours 05/15/21 05/16/21 05/16/21 Range/Units 05:00 05:40 05:40 WBC 17.2 H (4.0-10.5) K/mm3 RBC 3.71 L (4.1-5.4) M/mm3 Hgb 10.5 L (12.0-16.0) gm/dl Hct 33.9 L (35-47) % MCV 91.4 (78-100) fl MCH 28.3 (26-32) pg MCHC 31.0 L (32-36) g/dl RDW 14.4 H (11.5-14.0) % Plt Count 297 (150-450) K/mm3 MPV 10.0 (7.5-11.0) fl Segmented Neutrophils 77 H (36.0-66.0) % Band Neutrophils 1 (0.0-2.0) % Lymphocytes (Manual) 15 L (24-44) % Monocytes (Manual) 7 (0.0-12.0) % Platelet Estimate NORMAL (NORMAL) RBC Morphology NORMAL Sodium 139 (137-145) mmol/L Potassium 3.9 (3.5-5.1) mmol/L Chloride 105 (98-107) mmol/L Carbon Dioxide 27 (22-30) mmol/L Anion Gap 10.3 (5-15) MEQ/L BUN 10 (7-17) mg/dL Creatinine 0.49 L (0.52-1.04) mg/dL Estimated GFR > 60.0 ML/MIN Glucose 158 H (74-106) mg/dL Calcium 8.9 (8.4-10.2) mg/dL Total Bilirubin 0.30 (0.2-1.3) mg/dL AST 24 (14-36) U/L ALT 25 (0-35) U/L Alkaline Phosphatase 89 (38-126) U/L Serum Total Protein 5.5 L (6.3-8.2) g/dL Albumin 3.2 L (3.5-5.0) g/dL Procalcitonin 0.971 H 0.166 H (0.030-0.080) ng/mL Assessment/Plan (1) Pelvic abscess Current Visit: Yes Status: Acute Assessment & Plan: She is on zosyn day #7, vancomycin day #3, and flagyl day #3. Her WBC are up to 17,000 today, but she is afebrile and her procalcitonin is decreased from yesterday. Will image her pelvis again - will try with u/s, but if unable to image will do CT. Restart fluids; she gets TOMAS and edema on fluids so will start lasix as well. Code(s): [id number] - (2) DM2 (diabetes mellitus, type 2) Current Visit: Yes Status: Chronic Qualifiers: Diabetes mellitus bottle gauger insulin use: without bottle gauger use Diabetes mellitus complication status: without complication Qualified Code(s): E11.9 - Type 2 diabetes mellitus without complications (3) HTN (hypertension) Current Visit: Yes Status: Chronic Assessment & Plan: add amlodipine daily and prn hydralazine, bp 190s systolic today. Code(s): I10 - ESSENTIAL (PRIMARY) HYPERTENSION
[2021-05-16] MEDS ORDERED: APRESOLINE 20 MG/ML INJ IV PRN (08:49)
--- NOTE | 2021-05-16 09:04 | PCM.NOTE ---
Date and Time: 05/16/2156 Subjective Assessment: Still having aching in arms and gen muscle pain. jarrell po. c/o itching on legs x 1 wk, thinks dry skin. no urinary sx. weakness is improved. OBJECTIVE DATA Vital Signs: Vital Signs - 24 hr Temp Pulse Resp BP Pulse Ox 05/16/21 08:00 98.6 F 68 19 177/81 94 L 05/16/21 03:20 97.7 F 71 18 170/76 94 L 05/15/21 23:25 97.8 F 67 16 154/71 94 L 05/15/21 19:41 97.7 F 69 17 167/77 96 05/15/21 16:00 98.6 F 75 19 192/88 94 L 05/15/21 12:00 97.8 F 76 19 194/89 96 Pain Assessment - Last Documented Pain Intensity 5 Pain Scale Used 0-10 Pain Scale Intake and Output: Intake & Output 05/13/21 05/14/21 05/15/21 05/16/21 12:59 12:59 11:59 11:59 Intake Total 3416 Output Total Balance 3416 Weight Lab Results: Lab Results-Last 24 Hours 05/15/21 05/16/21 05/16/21 Range/Units 05:00 05:40 05:40 WBC 17.2 H (4.0-10.5) K/mm3 RBC 3.71 L (4.1-5.4) M/mm3 Hgb 10.5 L (12.0-16.0) gm/dl Hct 33.9 L (35-47) % MCV 91.4 (78-100) fl MCH 28.3 (26-32) pg MCHC 31.0 L (32-36) g/dl RDW 14.4 H (11.5-14.0) % Plt Count 297 (150-450) K/mm3 MPV 10.0 (7.5-11.0) fl Segmented Neutrophils 77 H (36.0-66.0) % Band Neutrophils 1 (0.0-2.0) % Lymphocytes (Manual) 15 L (24-44) % Monocytes (Manual) 7 (0.0-12.0) % Platelet Estimate NORMAL (NORMAL) RBC Morphology NORMAL Sodium 139 (137-145) mmol/L Potassium 3.9 (3.5-5.1) mmol/L Chloride 105 (98-107) mmol/L Carbon Dioxide 27 (22-30) mmol/L Anion Gap 10.3 (5-15) MEQ/L BUN 10 (7-17) mg/dL Creatinine 0.49 L (0.52-1.04) mg/dL Estimated GFR > 60.0 ML/MIN Glucose 158 H (74-106) mg/dL Calcium 8.9 (8.4-10.2) mg/dL Total Bilirubin 0.30 (0.2-1.3) mg/dL AST 24 (14-36) U/L ALT 25 (0-35) U/L Alkaline Phosphatase 89 (38-126) U/L Serum Total Protein 5.5 L (6.3-8.2) g/dL Albumin 3.2 L (3.5-5.0) g/dL Procalcitonin 0.971 H 0.166 H (0.030-0.080) ng/mL Radiology Exams: Radiology Procedures Category Date Time Status PELVIC [US] Routine Exams 05/16/21 Ordered Assessment/Plan (1) Pelvic abscess Current Visit: Yes Status: Acute Code(s): [id number] - (2) DM2 (diabetes mellitus, type 2) Current Visit: Yes Status: Chronic Qualifiers: Diabetes mellitus longterm insulin use: without longterm use Diabetes mellitus complication status: without complication Qualified Code(s): E11.9 - Type 2 diabetes mellitus without complications (3) HTN (hypertension) Current Visit: Yes Status: Chronic Code(s): I10 - ESSENTIAL (PRIMARY) HYPERTENSION
[2021-05-16] MEDS: Hydromorphone 1 mg/ml Injection IV PRN ×2 (10:04→16:37)
[2021-05-16] MEDS: Lactated Ringers 1,000 ML IV SCH (10:18)
[2021-05-16] MEDS: VANCOMYCIN 1.25 GM/250 ML BAG 1.25 GM/250 ML PIGGYBACK IV SCH ×2 (10:32→21:55)
--- NOTE | 2021-05-16 10:47 | XRAY ---
Indication: Increasing WBC following surgery. Hysterectomy. Two-dimensional transabdominal pelvic sonogram performed. Comparison: February 03, 2021. Again total hysterectomy. No focal solid/cystic mass or abnormal fluid collection.
[2021-05-16] MEDS: Amaryl 2 MG PO SCH (10:56)
[2021-05-16] MEDS: CLARITIN 10 MG PO SCH (10:56)
[2021-05-16] MEDS: Acidophilus TABLET PO SCH ×3 (10:56→21:16)
[2021-05-16] MEDS: Cozaar 50 MG PO SCH (10:56)
[2021-05-16] MEDS: LASIX 20 MG PO SCH (10:57)
[2021-05-16] MEDS: ENOXAPARIN SODIUM SQ SCH (10:57)
[2021-05-16] MEDS: NORVASC 5 MG PO SCH (10:57)
[2021-05-16] MEDS: Miralax Powder 17GM PACKET PO SCH (10:57)
[2021-05-16] MEDS: ESTRACE 1 MG PO SCH (10:58)
[2021-05-16] MEDS: AMARYL 4 MG PO SCH (21:16)
[2021-05-16] MEDS: NORCO 5/325 MG PO PRN (21:55)
[2021-05-16] MEDS: Zofran 4 MG/2 ML VIAL IV PRN (21:55)
[2021-05-17] MEDS: Lactated Ringers 1,000 ML IV SCH (02:08)
[2021-05-17] MEDS: Zosyn 3.375 GM Vial 3.375 GM in Sodium Chloride 100ML MINI-BAG PLUS 100 ML IV SCH (05:49)
[2021-05-17] MEDS: FLAGYL 500 MG IVPB 500 MG/100 ML BAG IV SCH (06:23)
[2021-05-17 07:47] LABS: Hematocrit 36.1 % (35-47); Hemoglobin 11.4 gm/dl (12.0-16.0); Mean Cell Volume 91.2 fl (78-100); Mean Corpuscular Hemoglobin 28.8 pg (26-32); Mean Corpuscular Hgb Concent. 31.6 g/dl (32-36); Mean Platelet Volume 9.8 fl (7.5-11.0); Platelet Count 318 K/mm3 (150-450); Red Blood Count 3.96 M/mm3 (4.1-5.4); Red Cell Distribution Width 14.4 % (11.5-14.0); White Blood Count 18.6 K/mm3 (4.0-10.5)
[2021-05-17] MEDS: Acidophilus TABLET PO SCH (08:16)
[2021-05-17] MEDS: ENOXAPARIN SODIUM SQ SCH (08:16)
[2021-05-17] MEDS: NORVASC 5 MG PO SCH (08:16)
[2021-05-17] MEDS: Amaryl 2 MG PO SCH (08:16)
[2021-05-17] MEDS: CLARITIN 10 MG PO SCH (08:16)
[2021-05-17] MEDS: Cozaar 50 MG PO SCH (08:16)
[2021-05-17] MEDS: LASIX 20 MG PO SCH (08:17)
[2021-05-17] MEDS: Miralax Powder 17GM PACKET PO SCH (08:17)
[2021-05-17] MEDS: ESTRACE 1 MG PO SCH (08:17)
[2021-05-17 08:27] LABS: ALBUMIN 3.4 g/dL (3.5-5.0); ALKALINE PHOSPHATASE 95 U/L (38-126); ANION GAP 9.7 MEQ/L (5-15); BLOOD UREA NITROGEN 9 mg/dL (7-17); CHLORIDE 103 mmol/L (98-107); Calcium 8.7 mg/dL (8.4-10.2); Carbon Dioxide 29 mmol/L (22-30); Creatinine 1 0.46 mg/dL (0.52-1.04); EST GLOMERULAR FILTRATION RATE > 60.0 ML/MIN; Glucose 222 mg/dL (74-106); Potassium 3.6 mmol/L (3.5-5.1); SGOT/AST 24 U/L (14-36); SGPT/ALT 26 U/L (0-35); SODIUM 138 mmol/L (137-145); Total Protein 5.7 g/dL (6.3-8.2)
[2021-05-17] MEDS: VANCOMYCIN 1.25 GM/250 ML BAG 1.25 GM/250 ML PIGGYBACK IV SCH (09:40)
--- NOTE | 2021-05-17 09:40 | PCM.DS ---
Discharge Summary Date of Admission: 05/09/21 11:29 Admitting Physician: NOLAN LEYVA Primary Care Provider: AKIKO PINEDA Allergies Allergies sodium chloride Allergy (Verified 05/09/21 12:23) Swelling patient states she has to have low sodium if she has an IV, otherwise her brain swells codeine Adverse Reaction (Verified 05/09/21 12:23) Hives Hallucinations metformin Adverse Reaction (Verified 05/09/21 12:23) Diarrhea Sulfa (Sulfonamide Antibiotics) Adverse Reaction (Verified 05/09/21 12:23) [place] Summary - Hospital Course Hospital Course: Pt is a 65 yo female pt who was seeing Dr. Leyva and Dr. Jacobo for persistent pelvic mass, s/p drainage with IR. She c/o persistent urinary frequency and was found to have infected preperitoneal mass, which was removed surgically with Dr. Red, thank you. She was placed on IV zosyn initially, but several days later IV vancomycin and flagyl were added, as her WBC count increased. Her WBC initially were 13.6, but increased yesterday to 17.2 and today are 18.6. She remains on 3 IV antibiotics and is afebrile. Clinically, she is improving, with decreased pain and is tolerating po well. She had a pelvic ultrasound yesterday that showed no masses or abnormality. Surgery saw her yesterday and removed half her juan francisco; agrees that she can be discharged to home with FM to manage her antibiotics. I discussed with pharmacy and we agreed pt can trial po levaquin and flagyl with a recheck of labs in 2 days. Pt should return to hospital [facility] for any temperature over 100.4. Pt's pain is down to 2/10 at rest, up to 6/10 with activity. She is tolerating soft diet and is very hungry this morning. - Vitals & Intake/Output Vital Signs: Vital Signs Temperature 96.7 F 05/17/21 08:00 Pulse Rate 75 05/17/21 08:00 Respiratory Rate 19 05/17/21 08:00 Blood Pressure 169/76 05/17/21 08:00 O2 Sat by Pulse Oximetry 95 05/17/21 08:00 Intake & Output: Intake & Output 05/14/21 05/15/21 05/16/21 05/17/21 12:59 11:59 11:59 11:59 Intake Total 3836 1260 Output Total Balance 3836 1260 - Lab Result Diagrams: 05/17/21 07:40 05/17/21 07:40 Lab Results-Last 24 Hrs: Lab Results-Last 24 Hours 05/16/21 05/17/21 05/17/21 Range/Units 09:30 07:40 07:40 WBC 18.6 H (4.0-10.5) K/mm3 RBC 3.96 L (4.1-5.4) M/mm3 Hgb 11.4 L (12.0-16.0) gm/dl Hct 36.1 (35-47) % MCV 91.2 (78-100) fl MCH 28.8 (26-32) pg MCHC 31.6 L (32-36) g/dl RDW 14.4 H (11.5-14.0) % Plt Count 318 (150-450) K/mm3 MPV 9.8 (7.5-11.0) fl Sodium 138 (137-145) mmol/L Potassium 3.6 (3.5-5.1) mmol/L Chloride 103 (98-107) mmol/L Carbon Dioxide 29 (22-30) mmol/L Anion Gap 9.7 (5-15) MEQ/L BUN 9 (7-17) mg/dL Creatinine 0.46 L (0.52-1.04) mg/dL Estimated GFR > 60.0 ML/MIN Glucose 222 H (74-106) mg/dL Calcium 8.7 (8.4-10.2) mg/dL Total Bilirubin 0.30 (0.2-1.3) mg/dL AST 24 (14-36) U/L ALT 26 (0-35) U/L Alkaline Phosphatase 95 (38-126) U/L Serum Total Protein 5.7 L (6.3-8.2) g/dL Albumin 3.4 L (3.5-5.0) g/dL Vancomycin Trough 8.39 L (10-20) ug/mL Micro Results-Entire Visit: Microbiology 05/09/21 16:10 Gram Stain - Final Pelvic Cyst Fluid Gram Stain Result 1 - Final Gram Stain Result 2 - Final Sterile Body Fluid Culture - Final Body Fluid Culture Result 1 - Final 05/09/21 16:08 Wound Culture - Final Pelvic Cyst Fluid NO GROWTH 05/09/21 14:10 Urine Culture - Final Catherized NO GROWTH - Radiology Exams Ordered Rad Exams-Entire Visit: Radiology Procedures Category Date Time Status PELVIC [US] Routine Exams 05/16/21 10:38 Completed - Procedures and Test Procedures and Tests throughout Hospitalization: Therapy Orders & Screens 05/16/21 08:57 PT Eval & Treat ( Order) ONCE Reason for Eval:: weakness; rhabdomyolysis Diagnosis: pelvic cystic mass Discharge Exam General Appearance: no apparent distress, alert Neurologic Exam: oriented x 3, cooperative Eye Exam: eyes nml inspection Ears, Nose, Throat Exam: moist mucous membranes Neck Exam: normal inspection Respiratory Exam: normal breath sounds, lungs clear, No crackles/rales, No rhonchi, No wheezing Cardiovascular Exam: regular rate/rhythm, normal heart sounds, No murmur Gastrointestinal/Abdomen Exam: soft, normal bowel sounds, tenderness (generalized mild ttp), other (midline dressing c/d/i) Back Exam: normal inspection, No rash Extremity Exam: normal inspection, No pedal edema, No swelling Final Diagnosis/Problem List - Final Discharge Diagnosis/Problem (1) Pelvic abscess Current Visit: Yes Status: Acute Assessment & Plan: Clinically she is improved, although her WBC remain high. Will send her home on po antibiotic and pain meds. F/u in office in 2 days, with CBC and CMP being drawn before appointment. Code(s): [id number] - (2) DM2 (diabetes mellitus, type 2) Current Visit: Yes Status: Chronic (3) HTN (hypertension) Current Visit: Yes Status: Chronic Code(s): I10 - ESSENTIAL (PRIMARY) HYPERTENSION - Discharge Disposition: Home, Self-Care Condition: Stable Prescriptions: New Hydrocodone/Acetaminophen [Hydrocodone-Acetamin 5-325 mg] 1 tab PO Q4HPRN PRN #28 tablet MDD 6 PRN Reason: Pain Lactobacillus Acidophilus [Acidophilus TABLET] 1 tab PO TID tablet Metronidazole 500 mg [Flagyl 500 MG] 500 mg PO TID #21 tablet Hydrocodone Bit/Acetaminophen [Hydrocodon-Acetaminophn 10-325] 1 each PO Q4H PRN #20 tablet PRN Reason: Pain Levofloxacin [Levaquin] 500 mg PO DAILY #7 tablet Polyethylene Glycol 3350 17 gm [Miralax Powder 17GM PACKET] 17 gm PO DAILY packet Amlodipine Besylate 5 mg [Norvasc 5 mg] 5 mg PO QAM #30 tablet Continue Glimepiride 2 mg [Amaryl 2 MG] 2 mg PO QAM Estradiol [Estrace] 0.5 mg PO DAILY Glimepiride 4 mg [Amaryl 4 mg] 4 mg PO HS Cetirizine HCl [Allergy Relief] 10 mg PO DAILY Losartan Potassium 50 mg [Cozaar 50 MG] 50 mg PO DAILY Doxylamine Succinate [Sleep Aid] 25 mg PO HS Follow up with: ELY LEYVA [COURTESY STAFF] - AKIKO PINEDA [Primary Care Provider] -
[2021-05-17] MEDS ORDERED: BETAMETHASONE DIPROPIONATE TOP SCH (10:00)
[2021-05-17] MEDS: Hydromorphone 1 mg/ml Injection IV PRN (11:26)
[2021-05-18] MEDS ORDERED: TROUGH DRUG LEVELS IJ ONE (09:30)
== END 2021-05-17 12:10 | disposition home or self-care (01) | DRG 742 ==
LOC: MED SURG 11:29
PROVIDERS: ADMIT Surgery; ATTEND Surgery
PROC: 0UT60ZZ Resection of Left Fallopian Tube, Open Approach (ICD-10-PCS; principal; 2021-05-09)
PROC: 0WBH0ZX Excision of Retroperitoneum, Open Approach, Diagnostic (ICD-10-PCS; 2021-05-09)
PROC: 0UT10ZZ Resection of Left Ovary, Open Approach (ICD-10-PCS; 2021-05-09)
PROC: 0D9W00Z Drainage of Peritoneum with Drainage Device, Open Approach (ICD-10-PCS; 2021-05-09)
DX: D27.1 Benign neoplasm of left ovary (principal); M62.82 Rhabdomyolysis; N83.8 Other noninflammatory disorders of ovary, fallopian tube and broad ligament; N89.8 Other specified noninflammatory disorders of vagina; R53.1 Weakness; E11.9 Type 2 diabetes mellitus without complications; I10 Essential (primary) hypertension; E78.5 Hyperlipidemia, unspecified; Z79.899 Other long term (current) drug therapy; Z20.828 Contact with and (suspected) exposure to other viral communicable diseases
CPT/HCPCS: 36415; 64488; 76856; 76937; 76942; 80048; 80053; 80202; 81001; 83036; 84145; 85025; 85027; 86850; 86900; 86901; 87070; 87075; 87086; 87205; 88305; 88307; 88309; 94762; J0360; J0690; J1170; J1650; J2250; J2270; J2405; J2704; J3010; L0625; A9270-GY; J3370

== ENCOUNTER 2023-04-19 21:23 | Emergency (ER) | payer OTHER ==
--- NOTE | 2023-04-19 21:37 | ERPHSYRPT ---
- History of Present Illness Time Seen by Provider: 04/19/23 21:30 Source: patient Exam Limitations: no limitations Physician History: Pt states she slipped in her garage and fell backwards hitting the back of her head possibly on a metal cart with resultant bleeding from the back of her head; denies LOC, vomiting, seizure, back pain, fever, chest pain. Allergies/Adverse Reactions: sodium chloride Allergy (Verified 04/19/23 21:33) Swelling patient states she has to have low sodium if she has an IV, otherwise her brain swells codeine Adverse Reaction (Verified 04/19/23 21:33) Hives Hallucinations metformin Adverse Reaction (Verified 04/19/23 21:33) Diarrhea Sulfa (Sulfonamide Antibiotics) Adverse Reaction (Verified 04/19/23 21:33) Hives Home Medications: Glimepiride 4 mg [Amaryl 4 mg] 4 mg PO BID 03/21/21 [History] Oxybutynin Chloride [Oxybutynin Chloride ER] 5 mg PO DAILY 04/19/23 [History] Travel Risk - Vaccine Status Have you recieved a Covid-19 vaccination: Yes [place]: Moderna - Vaccination Dates Date of 2cond Vaccination (if applicable): November 05 2020 - Review of Systems Constitutional: No Fever Respiratory: No Dyspnea Cardiac: No Chest Pain Abdominal/Gastrointestinal: No Abdominal Pain, No Vomiting Genitourinary Symptoms: No Dysuria Musculoskeletal: No Back Pain Neurological: Headache (occipital), No Focal Weakness, No Sensory Changes - Past Medical History Pertinent Past Medical History: Yes Neurological History: No Pertinent History ENT History: No Pertinent History Cardiac History: Hypertension Respiratory History: No Pertinent History Endocrine Medical History: Diabetes Type II Musculoskeletal History: No Pertinent History GI Medical History: No Pertinent History History: Other Psycho-Social History: No Pertinent History Female Reproductive Disorders: No Pertinent History Other Medical History: PT. HAS HX 5 ABD SX. MOST RECENT 05/29. HX BENIGN BLADDER CYST. HX HYSTERECTOMY. NO SIGNIFCANT HX UTIS. - Past Surgical History Past Surgical History: Yes Neuro Surgical History: No Pertinent History Cardiac: No Pertinent History Respiratory: No Pertinent History Gastrointestinal: Appendectomy, Cholecystectomy, Exploratory Laparoscopy Genitourinary: No Pertinent History Musculoskeletal: No Pertinent History Female Surgical History: Hysterectomy, Dilation & Curettage Other Surgical History: colonoscopy, exploratory with cholecystectomy and appendectomy done, pelvic cyst drained, L OVARY REMOVED, LUMP REMOVED FROM L UPPER ARM - Social History Smoking Status: Never smoker Exposure to second hand smoke: No Drug Use: none - Nursing Vital Signs Nursing Vital Signs: Initial Vital Signs Blood Pressure 190/105 04/19/23 21:38 Pain Scale Pain Intensity 4 - [place] Coma Score Best Eye Response ([place]): (4) open spontaneously Best Verbal Response ([place]): (5) oriented Best Motor Response ([place]): (6) obeys commands [place] Total: 15 - Physical Exam General Appearance: alert Head Injury: swelling (mild edema & tenderness over a 1 cm laceration over the lower occipital area) Eye Exam: PERRL/EOMI ENT Exam: airway nml, No dental injury, No clear fluid (ears), No clear fluid (nose) Neck Exam: trachea midline, normal inspection, No tenderness Respiratory/Chest Exam: normal breath sounds Cardiovascular Exam: normal heart sounds Gastrointestinal Exam: normal bowel sounds Back Exam: No vertebral tenderness Extremity Exam: normal inspection, normal range of motion Neurologic Exam: alert, oriented x 3, cooperative, sensation nml, No motor deficits Skin Exam: warm, dry Procedures - Laceration/Wound Repair Occipital Wound Location: head Wound Length (cm): 1 Wound's Depth, Shape: irregular Wound Explored: clean Hibiclens Prep: Yes Anesthesia: 1% lidocaine w/ Epi Volume Anesthetic (ccs): 1 Wound Repaired With: Juan Francisco (2) - CT Exams Head CT Interpretation: Tele-radiologist Report (No intracerebral or extra axial hematoma. The non-enhanced CT study for the brain is unremarkable.) Cervical Spine CT Interpretation: Tele-radiologist Report (No evidence of acute fracture or dislocation. Straightening of the cervical spine due to muscle spasm. Early cervical spondylosis.) Ordered Tests: Active Orders 24 hr Category Date Time Status Cervical Collar Application STAT Care 04/19/23 21:39 Active CERVICAL SPINE WO CONTRAST [CT] Stat Exams 04/19/23 22:08 Completed HEAD WITHOUT CONTRAST [CT] Stat Exams 04/19/23 22:05 Completed Medication Summary Discontinued Medications Generic Name Dose Route Start Last Admin Trade Name Freq PRN Reason Stop Dose Admin Acetaminophen 650 mg 04/19/23 21:39 04/19/23 21:45 Acetaminophen 325 Mg Tablet PO 04/19/23 21:40 650 mg STAT ONE Administration Acetaminophen Confirm 04/19/23 21:42 Acetaminophen 325 Mg Tablet Administered 04/19/23 21:43 Dose 650 mg .ROUTE .STK-MED ONE Tetanus/Diphtheria Toxoids Adsorbed 0.5 ml 04/19/23 21:48 04/19/23 21:51 Tetanus And Diphtheria Tox/Pf 0.5 Ml Vial IM 04/19/23 21:49 0.5 ml .ONCE ONE Administration Tetanus/Diphtheria Toxoids Adsorbed Confirm 04/19/23 21:49 Tetanus And Diphtheria Tox/Pf 0.5 Ml Vial Administered 04/19/23 21:50 Dose 0.5 ml IM .STK-MED ONE - Progress Progress: improved Counseled pt/family regarding: diagnosis, need for follow-up, rad results Medical Desision Making - Diagnostic Testing Diagnostic test were ordered, analyzed, and reviewed by me: Yes Radiological Interpretation: Teleradiologist Report - Departure Departure Disposition: Home Clinical Impression: Fall, 1 cm scalp laceration, Head contusion, Cervical sprain Condition: Stable Critical Care Time: No Referrals: SHEMAR GANT DO [Primary Care Provider] - Follow up/PCP as directed Instructions: Laceration Repair With [place] ([place]) Additional Instructions: Wear soft C-collar for the next 2 weeks only while awake. Have juan francisco removed in 10 days. Prescriptions: Ketorolac Trometh 10 mg Tab [TORAdol 10 MG TABLET] 10 mg PO Q8HPRN PRN #14 tablet PRN Reason: Pain
[2023-04-19] MEDS ORDERED: TYLENOL 325 MG PO ONE (21:39)
[2023-04-19 21:40] VITALS: TEMP 98.9
[2023-04-19] MEDS ORDERED: TYLENOL 325 MG ONE (21:42)
[2023-04-19] MEDS ORDERED: TENIVAC VIAL IM ONE ×2 (21:48→21:49)
--- NOTE | 2023-04-19 22:49 | XRAY ---
CLINICAL HISTORY:trauma COMPARISON:None. TECHNIQUE:Axial non-contrast CT scan of the brain was performed from the skull base to the high parietal region. Coronal and sagittal reconstructions were also obtained. FINDINGS: The visualized brain parenchyma shows a normal appearance. Garcia-white matter differentiation is maintained. No midline shifts or deformity. No intracerebral or extra axial hematoma. Normal size and configuration of the cerebral ventricles. Normal CT appearance of the posterior fossa structures namely the cerebellar hemispheres, brainstem and cerebellar peduncles. The IACs are unremarkable. The cerebello-pontine angles are clear. The osseous structures in the skull base are unremarkable. No definite calvarium fractures. Minimal extracalvarial soft tissue swelling in left occipital region is seen. The scanned paranasal sinuses are clear. IMPRESSION: 1. No intracerebral or extra axial hematoma. 2. The non-enhanced CT study for the brain is unremarkable. Electronically Signed by: Arvin Gamino MD. (04/19/2023 21:48:23 MEDICAL RECEPTIONIST MEDICAL ASSISTANT)
[2023-04-19 23:14] VITALS: BP 160/90; PULSE 84; RESP 17; O2SAT 93
--- NOTE | 2023-04-19 23:19 | XRAY ---
CLINICAL HISTORY:trauma COMPARISON:None. TECHNIQUE:Thin axial CT of the cervical spine was performed with sagittal and coronal reconstructions without contrast. FINDINGS: Straightening of the cervical spine due to muscle spasm. There is developmental nonfusion of the posterior arch of C1. Small marginal anterior and posterior osteophytes seen, predominantly at lower cervical levels. Small posterior osteophytes at C4-C5 level, slightly encroaching the spinal canal. The vertebral bodies are normal in height. No lytic or sclerotic bone lesion. The craniovertebral measures are unremarkable. Intervertebral disc spaces are well maintained. No fracture or dislocation is seen. No evidence of facet joint hypertrophy or neural formainal stenosis. Pre-vertebral soft tissues are within normal limits. Hemangioma seen in T1 vertebral body. IMPRESSION: No evidence of acute fracture or dislocation. Straightening of the cervical spine due to muscle spasm. Early cervical spondylosis. Electronically Signed by: Arvin Gamino MD. (04/19/2023 22:17:56 CASTABLES WORKER)
[2023-04-19] MEDS ORDERED: XYLOCAINE 1%/Epi 1:100000 MDV 20 ML ONE (23:33)
[2023-04-19] MEDS ORDERED: XYLOCAINE 1%/Epi 1:100000 MDV 20 ML IJ ONE (23:37)
== END 2023-04-19 23:55 | disposition home or self-care (01) ==
LOC: ED 21:23
DX: S01.01XA Laceration without foreign body of scalp, initial encounter (principal); S00.93XA Contusion of unspecified part of head, initial encounter; S16.1XXA Strain of muscle, fascia and tendon at neck level, initial encounter; W01.10XA Fall on same level from slipping, tripping and stumbling with subsequent striking against unspecified object, initial encounter; Y92.015 Private garage of single-family (private) house as the place of occurrence of the external cause; I10 Essential (primary) hypertension; E11.9 Type 2 diabetes mellitus without complications; Z79.84 Long term (current) use of oral hypoglycemic drugs; Z79.899 Other long term (current) drug therapy; Z23 Encounter for immunization
CPT/HCPCS: 12001; 70450; 72125; 90471; 90714; 96372; 99284; A9270-GY

== ENCOUNTER 2023-10-01 08:46 | Day surgery (SDC) | payer OTHER ==
--- NOTE | 2023-10-01 08:08 | HP ---
DATE OF SURGERY: 10/01/2023 HISTORY OF PRESENT ILLNESS: The patient is a 67-year-old has problems with food sticking in lower esophagus in the past and most recently some projectile vomiting. Prior upper endoscopy ten years ago. Family history of mother having esophageal problems, no cancer. PAST MEDICAL HISTORY: Diabetes mellitus type II, hyperlipidemia. PAST SURGICAL HISTORY: Tonsillectomy. Appendectomy. Hysterectomy. Dermal cysts. Left oophorectomy. Cholecystectomy. MEDICATIONS: Emergen-C, Tylenol PM Extra-Strength, vitamin D3, Biotin, zinc gluconate, MiraLAX, Mounjaro, glimepiride, oxybutynin, metoprolol. ALLERGIES: CYMBALTA. SENSITIVE TO CODEINE AND SULFA (HIVES). METFORMIN (DIARRHEA). SODIUM CHLORIDE (SWELLING). FAMILY HISTORY: Luekemia. Diabetes. SOCIAL HISTORY: No smoking. No alcohol abuse. REVIEW OF SYSTEMS: Twelve systems reviewed pertinent for as noted above. No chest pain or palpitations currently. Other systems negative or noncontributory as above and per preadmission assessment. PHYSICAL EXAMINATION: Height 5 feet, 5 inches. BMI 23.63. GENERAL: No acute distress. HEENT: Sclerae nonicteric. EOMI. Oral mucous membranes moist. NECK: No JVD. CHEST: Equal excursion, nonlabored breathing. CVS: Regular rate and rhythm. ABDOMEN: Soft. EXTREMITIES: No cyanosis or edema. NEURO: Alert, oriented, moving extremities symmetrically. PSYCH: Appropriate mood and affect. SKIN: Dry. IMPRESSION: Dysphagia lower esophagus. I feel the patient would benefit from upper endoscopy possible biopsy possible dilatation. She was shown the risk sheet explained the procedure in detail but not limited to bleeding or infection, risk of bowel injury or perforation risk of missed or nondiagnosis or incomplete exam, possibly requiring barium swallow, other studies or procedures, possible other tests or dilators. Possibility of no narrowing to dilate and possible neurological or functional problem that dilatation may not benefit. If dilatation is performed and improves swelling might need to be repeated again down the road. They understand all of the above but not limited to. The patient agrees to the planned procedure. Will proceed with outpatient EGD possible biopsy possible dilatation under MAC anesthesia. Otherwise, continue medication for hyperlipidemia and vitamin supplements.
[2023-10-01 09:24] VITALS: RESP 16
[2023-10-01] MEDS ORDERED: Lactated Ringers 1,000 ML IV ONE (09:38)
[2023-10-01] MEDS: Lactated Ringers 1,000 ML IV SCH (09:55)
[2023-10-01] MEDS ORDERED: DIPRIVAN 200 MG/20 ML IV ONE (11:36)
[2023-10-01] MEDS ORDERED: Xylocaine-Mpf 2% 5 Ml Vial ONE (11:36)
[2023-10-01 12:25] VITALS: PULSE 65; O2SAT 97
[2023-10-01 12:33] VITALS: BP 132/69; TEMP 97.1
--- NOTE | 2023-10-01 13:33 | OP ---
SURGERY DATE/TIME: 10/01/2023 1136 PREOPERATIVE DIAGNOSIS: Dysphagia. POSTOPERATIVE DIAGNOSES: 1) Mild gastric erythema biopsy pending to evaluate for gastritis. 2) Short segment mild distal esophagitis. 3) Short segment distal esophageal narrowing and spasm symptomatic (requiring dilatation). PROCEDURES: 1) EGD with cold biopsy to antrum for Helicobacter pylori. 2) Cold biopsy distal esophagus for histology. 3) Distal esophageal dilatation (size 20 balloon). SURGEON: Dr. Max Leyva. ANESTHESIA: MAC. ESTIMATED BLOOD LOSS: Minimal. INDICATIONS: As noted above. Risks and benefits explained in detail and not limited to and consent obtained. DESCRIPTION OF PROCEDURE AND FINDINGS: The patient is taken to the endoscopy room. MAC anesthesia introduced. After official time out and no disagreement with planned procedure, bite block positioned. Video gastroscope easily passed down the proximal esophagus and distal esophagus past some narrowing, spasm and a short segment of 2 to 3 mm of distal esophageal inflammation/salmon pink mucosa. Cold biopsy taken for path. The scope passed back down into the patent pylorus to the junction of third and fourth portion of the duodenum. On withdrawal of the scope, duodenum grossly unremarkable. Back in the stomach she had some gastric erythema. No signs of any ulcers or masses. Cold biopsy taken to evaluate for Helicobacter pylori. On retroflex, the gastroesophageal junction snug against the scope. There were no signs of any hiatal hernia on endoscopic view. The scope was straightened. The gastroesophageal junction 40 cm. Again, short segment of 2 to 3 mm of inflammation and some salmon pink mucosa. Cold biopsy taken to evaluate for histology. Good hemostasis noted. There were no signs of any zenia mass. There was a narrowed area. It was felt as she was having symptoms felt it was worthwhile to trial dilatation. The remainder of the esophagus is grossly unremarkable. Scope passed back down in the stomach. A 20 balloon catheter was carefully inserted and pulled back up to the narrowed area where it was carefully inflated first stage for 30 seconds, second stage 30 seconds and final stage for 2 minutes size 20 balloon dilator. The wound was then decompressed and withdrawn. The scope more easily passed through this area. There was mild to minimal mucosal disruption. No signs of any full thickness issues secondary to dilatation. It seemed to be more wildly patent. The scope is withdrawn. The patient tolerated the procedure well. Findings were discussed with the family out in the waiting area.
== END 2023-10-01 12:42 | disposition home or self-care (01) ==
LOC: SDC 08:46
PROVIDERS: ATTEND Surgery
DX: K29.70 Gastritis, unspecified, without bleeding (principal); R13.10 Dysphagia, unspecified; E11.9 Type 2 diabetes mellitus without complications; K20.90 Esophagitis, unspecified without bleeding; K22.2 Esophageal obstruction
CPT/HCPCS: 82947; C1726; J2704

== ENCOUNTER 2025-03-27 05:54 | Day surgery (SDC) | payer MEDICARE ==
[2025-03-27] MEDS ORDERED: CEFAZOLIN SODIUM ONE (06:16)
[2025-03-27 06:34] VITALS: RESP 18
[2025-03-27] MEDS: Lactated Ringers 1,000 ML IV SCH (07:30)
[2025-03-27] MEDS ORDERED: Xylocaine-Mpf 2% 5 Ml Vial ONE (07:56)
[2025-03-27] MEDS ORDERED: Versed 2 MG/2 ML Injection ONE (07:59)
[2025-03-27] MEDS ORDERED: propofoL IV ONE (08:08)
[2025-03-27] MEDS ORDERED: TRANDATE 20 MG/4 ML SYRINGE IV ONE (08:44)
[2025-03-27] MEDS ORDERED: SUBLIMAZE 100 MCG/2 ML ONE (08:57)
[2025-03-27 09:26] VITALS: PULSE 75
[2025-03-27 09:36] VITALS: BP 153/78; TEMP 97.7; O2SAT 95
--- NOTE | 2025-03-30 12:30 | OP ---
SURGERY DATE/TIME: 03/27/2025 [id number] PREOPERATIVE DIAGNOSIS: Mass, left long finger. POSTOPERATIVE DIAGNOSIS: Ganglion cyst, left long finger. PROCEDURE: Excision of ganglion cyst, left long finger. SURGEON: Faraz Jean Baptiste II, DO. ANESTHESIA: [place] block. DESCRIPTION OF PROCEDURE AND FINDINGS: The patient was identified and informed consent was obtained. Patient was taken to the operative suite where the G[place] block anesthetic was administered. Once an appropriate level of anesthesia had been obtained, the left upper extremity was then prepped and draped in the usual sterile fashion. At this point, an incision was carried out along the mid lateral line over the mass on the ulnar side of the long finger at the base. Skin was incised. Dissection was carried out through the subcutaneous tissue. At this point, a slight "L" was created in the incision for better visualization. The mass was easily identified and noted to be a ganglion cyst. The neurovascular bundle was gently teased off the ganglion cyst and the nerve, artery and vein were all retracted away from the cyst. The cyst was then removed in toto. The wound was then irrigated and closed with interrupted 5-0 nylon suture, [employer]ics, 4 x 4's, and a sterile dressing applied. The patient was then transferred to the Day Surgery in satisfactory condition, having tolerated the procedure well.
== END 2025-03-27 09:46 | disposition home or self-care (01) ==
LOC: SDC 05:54
PROVIDERS: ATTEND Orthopaedic Surgery
DX: R22.32 Localized swelling, mass and lump, left upper limb (principal); E11.9 Type 2 diabetes mellitus without complications

== ENCOUNTER 2025-04-29 07:46 | Day surgery (SDC) | payer MEDICARE ==
[2025-04-29] MEDS ORDERED: BUPIVACAINE 0.5% VIAL IJ ONE (07:47)
[2025-04-29] MEDS ORDERED: methylPREDNISolone acetate IM ONE (07:47)
[2025-04-29] MEDS ORDERED: propofoL IV ONE (09:10)
--- NOTE | 2025-04-29 11:59 | XRAY ---
Indication: Bilateral costochondral injection. Intraoperative fluoroscopy provided for 11 seconds. 6 digital spot images submitted for interpretation demonstrates 3 right and 3 left anterior needle tips projecting over unknown costochondral junction. Correlate with intraoperative findings/report.
--- NOTE | 2025-04-29 12:32 | XRAY ---
11 seconds of fluoroscopy was used in surgery for a bilateral costochondral injection.
[2025-04-29] MEDS ORDERED: Lactated Ringers 1,000 ML IV ONE (14:01)
== END 2025-04-29 09:45 | disposition home or self-care (01) ==
LOC: SDC-PAIN 07:46
PROVIDERS: ATTEND Psychiatry & Neurology Pain Medicine
DX: R07.81 Pleurodynia (principal); E11.9 Type 2 diabetes mellitus without complications